=== PATIENT | male | born 1960 | race Caucasian/White ===

== ENCOUNTER 2023-11-29 07:01 | Emergency (ER) | payer OTHER, SELFPAY ==
[2023-11-29 07:03] VITALS: BP 146/93
[2023-11-29 07:28] VITALS: BMI 28.7
[2023-11-29 07:33] VITALS: BP 136/90
--- NOTE | 2023-11-29 07:35 | ED.GENMED ---
History of Present Illness
General
Chief Complaint: Abdominal Pain
Source: patient
Exam Limitations: none
Time Seen by Provider: 11/29/23 07:23
Travel History
Have you had any contact with someone who has COVID-19?: No
Do you have any symptoms of coronavirus? Fever > 100 degrees, chills, cough, shortness of breath, sore throat, loss of taste or smell, muscle aches, or headache?: No
History of Present Illness
History of Present Illness:
63-year-old male with history of hypertension hyperlipidemia and reflux presents with burning sensation in center of his chest that is constant since last night. It feels similar to his prior bout of esophagitis he had in July. He was admitted
to this hospital for his esophagitis. He was instructed to follow-up with GI as an outpatient but never did. He drinks 2 cups of coffee a day and has about 4-5 beers a week. He uses Motrin occasionally. Denies any dark or tarry stools. When the
pain is worse he feels nauseous and sweaty. He denies any pleuritic nature to the pain. The pain does not radiate to the back.
Past History
Past History
ED Past Medical History: HTN
ED Past Surgical History: None
Social History
Tobacco: Former smoker
Alcohol: None
Drug: None
Phy Exam
Physical Exam
Physical Exam:
General: Well-appearing male no acute respiratory distress
HEENT: Normocephalic sclera anicteric
Heart: Regular rate and rhythm no murmurs
Lungs: Clear no wheeze or rales
Abdomen soft nontender nondistended no guarding rebound normal bowel sounds
Extremities: No cyanosis or edema
Course
Orders/Labs/Results
Orders:
Orders
11/29/23 07:08
Electrocardiogram (*1) Urgent
Reason for Study: Vertigo / Dizzy
EKG- Treatment ONCE
11/29/23 07:34
Pantoprazole [Protonix IV] 40 mg IV NOW STA
11/29/23 07:41
CMP [Comprehensive Metabolic Panel] Urgent
Complete Blood Count/No Diff Urgent
Lipase Urgent
Troponin I Urgent
Abnormal Lab Results
11/29/23
07:41
WBC 13.5 H 10^3/uL
(4.8-10.8)
MCH 31.8 H pg
(27.0-31.0)
Glucose 129 H mg/dl
(70-99)
Lipase 326 H U/L
(23-300)
11/29/23 07:41
11/29/23 07:41
Vital Signs
Initial and Last Documented VS:
Initial Vital Signs
Temp Pulse Resp BP Pulse Ox
98.5 F 65 18 146/93 97
11/29/23 07:03 11/29/23 07:03 11/29/23 07:03 11/29/23 07:03 11/29/23 07:03
Last Documented Vital Signs
Temp Pulse Resp BP Pulse Ox
98.5 F 65 18 146/93 97
11/29/23 07:03 11/29/23 07:03 11/29/23 07:03 11/29/23 07:03 11/29/23 07:03
MDM/Problems Addressed
Differential Diagnosis Includes:
Chest burning. History of esophagitis consider recurrent esophagitis versus reflux versus pancreatitis. Consider ACS given chest discomfort. EKG shows sinus rhythm with PVCs. Troponin is pending. I reviewed prior hospital records which
demonstrated that he had esophagitis that was diagnosed off of CT scan.
*Critical Care Note
Total Time (30-74mins, 75-104mins- exclusive of procedures): Not Applicable
Update Note
Update Note:
Patient feeling better after IV Protonix. Patient with known history of esophagitis which feels very similar today. Labs reviewed white count mildly elevated at 13 but has been higher in the past. Lipase just out of the range of normal but this
was higher in the past as well. Do not suspect acute pancreatitis. Do not suspect acute coronary syndrome secondary to negative troponin and normal EKG. Recommended bland diet will start Protonix and will refer to GI
ED Attending Note
-
Portions of this chart may have been created with voice recognition software.� Occasional wrong word or��sound alike� substitutions may have occurred due to the inherent limitations of voice recognition software.
Discharge Plan
Departure
Patient Disposition: Home (Routine Discharge)
Date of Disposition: 11/29/23
Time of Disposition: 09:20
Patient with high blood pressure during this ER visit?: No
Discharge Problem:
Esophagitis
Instructions: Acid Reflux and GERD in Adults (DC)
Prescriptions:
New
pantoprazole [Protonix] 40 mg tablet,delayed release (DR/EC)
40 mg PO DAILY Qty: 30 0RF
No Action
atorvastatin 10 mg Tablet
10 mg PO DAILY
amlodipine 5 mg Tablet
5 mg PO DAILY
allopurinol 300 mg Tablet
300 mg PO DAILY
lisinopril 40 mg Tablet
40 mg PO DAILY
pantoprazole [Protonix] 40 mg tablet,delayed release (DR/EC)
40 mg PO DAILY Qty: 30 3RF
Referrals:
Fercho Verdin MD [Active] -
Sera Rodriguez PA [Family Provider] -
Activity Restrictions/Additional Instructions:
Blood during plenty of fluids when eating. Stick with a bland diet. Use Protonix as directed. Follow-up with GI. Return if worse otherwise
Interventions
Interventions:
*Risk Screen - Suicide Last Done: 11/29/23 08:33
*General Assessment Last Done: 11/29/23 07:28
*Neglect/Abuse Screening Last Done: 11/29/23 08:33
ED- Fall Risk Assessment Last Done: 11/29/23 07:28
*ED COVID-19 Vaccine History Last Done: 11/29/23 07:28
ZX-Rvlnpp-Rvvqnntoim Assessment Last Done: 11/29/23 07:28
Discharge Date and Time
Print Language: MALAGASY
[2023-11-29] MEDS: PROTONIX IV 40 MG IV (07:45)
[2023-11-29 07:55] LABS: Hematocrit 45.7 % (39.0-52.0); Hemoglobin 16.4 g/dL (13.0-18.0); Mean Corp Hgb Conc. 35.9 g/dL (33.0-37.0); Mean Corpuscular Hgb 31.8 pg (27.0-31.0); Mean Corpuscular Volume 88.7 fL (80.0-94.0); Mean Platelet Volume 10.4 fL (7.4-10.4); Platelet Count 213 10^3/uL (130-400); Red Blood Cell Count 5.15 10^6/uL (4.70-6.10); Red Cell Dist. Width 12.2 % (11.5-14.5); White Blood Cell Count 13.5 10^3/uL (4.8-10.8)
[2023-11-29 08:00] VITALS: BP 124/85
[2023-11-29 08:10] LABS: ALT (SGPT) 30 U/L (0-50); AST (SGOT) 25 U/L (17-59); Albumin 4.6 g/dl (3.5-5.0); Alkaline Phosphatase 69 U/L (38-126); Blood Urea Nitrogen 17 mg/dl (9-20); Calcium 9.7 mg/dl (8.4-10.2); Carbon Dioxide 22 mmol/L (22-30); Chloride 105 mmol/L (98-107); Estimated Creatinine Clearance 96 ml/min; Glucose 129 mg/dl (70-99); Lipase 326 U/L (23-300); Potassium 3.7 mmol/L (3.5-5.1); Sodium 135 mmol/L (135-145); Total Bilirubin 0.8 mg/dl (0.2-1.3); Total Protein 7.1 g/dl (6.3-8.2); eGFR > 60.00
[2023-11-29 08:11] LABS: Troponin I < 0.012 ng/ml
[2023-11-29 09:00] VITALS: BP 121/73
--- NOTE | 2023-11-29 09:44 | EDRN ---
Reviewed discharge instructions with patient. Verbalized understanding. Ambulated with steady gait to the lobby.
[2023-11-29 09:45] VITALS: BP 121/73
== END 2023-11-29 09:45 | disposition home or self-care (01) ==
LOC: EMR 07:01
PROVIDERS: EMERGENCY PHYSICIAN Emergency Medicine; FAMILY PHYSICIAN Physician Assistant Medical
DX: K21.00 Gastro-esophageal reflux disease with esophagitis, without bleeding (principal); I10 Essential (primary) hypertension; Z87.891 Personal history of nicotine dependence
CPT/HCPCS: 99284; 96374; 80053; 83690; 84484; 85027; 93005

== ENCOUNTER 2024-06-14 06:34 | Day surgery (SDC) | payer OTHER, SELFPAY ==
[2024-06-14 10:10] VITALS: BMI 28.4
[2024-06-14 10:15] VITALS: BP 140/89
[2024-06-14 10:26] VITALS: BMI 28.4
[2024-06-14 13:53] VITALS: BP 105/71
[2024-06-14 14:00] VITALS: BP 101/66
[2024-06-14 14:15] VITALS: BP 126/78
[2024-06-14 14:30] VITALS: BP 125/90
== END 2024-06-14 14:40 | disposition home or self-care (01) ==
LOC: SDS 06:34
PROVIDERS: ATTENDING PHYSICIAN Internal Medicine Gastroenterology
DX: Z12.11 Encounter for screening for malignant neoplasm of colon (principal); D12.3 Benign neoplasm of transverse colon; D12.4 Benign neoplasm of descending colon; K57.30 Diverticulosis of large intestine without perforation or abscess without bleeding; K64.0 First degree hemorrhoids; K21.9 Gastro-esophageal reflux disease without esophagitis; R12 Heartburn; K44.9 Diaphragmatic hernia without obstruction or gangrene; K31.7 Polyp of stomach and duodenum; K31.89 Other diseases of stomach and duodenum; Z86.0101 Personal history of adenomatous and serrated colon polyps; Z98.890 Other specified postprocedural states
CPT/HCPCS: 45390; 45385; 43239; 88305; 88342

== ENCOUNTER 2025-05-02 06:23 | Day surgery (SDC) | payer OTHER, SELFPAY | END 2025-05-02 14:23 | disposition home or self-care (01) | LOC: GI 06:23 | PROVIDERS: ATTENDING PHYSICIAN Internal Medicine Gastroenterology | DX: Z12.11 Encounter for screening for malignant neoplasm of colon (principal); K64.8 Other hemorrhoids; K57.30 Diverticulosis of large intestine without perforation or abscess without bleeding; D12.3 Benign neoplasm of transverse colon; D12.4 Benign neoplasm of descending colon; K63.5 Polyp of colon; Z86.0100 Personal history of colon polyps, unspecified | CPT/HCPCS: 45385; 45380; 88305 ==